=== PATIENT | male | born 1980 | race Caucasian/White ===

== ENCOUNTER 2019-05-02 11:27 | Emergency (ER) | payer OTHER ==
[~2019-05-02] VITALS: Ht 170.2 cm; Wt 72.6 kg
[2019-05-02 11:28] VITALS: BP 138/91
[2019-05-02] MEDS ORDERED: PREDNISONE 20 M20 MG PO (12:01)
[2019-05-02] MEDS ORDERED: CLARITIN10 MG PO (12:01)
== END 2019-05-02 12:35 | disposition home or self-care (01) ==
LOC: ER 11:27
DX: S80.862A Insect bite (nonvenomous), left lower leg, initial encounter (principal); S80.861A Insect bite (nonvenomous), right lower leg, initial encounter; W57.XXXA Bitten or stung by nonvenomous insect and other nonvenomous arthropods, initial encounter; Y93.89 Activity, other specified; Y92.89 Other specified places as the place of occurrence of the external cause; Y99.8 Other external cause status; F15.10 Other stimulant abuse, uncomplicated; F17.210 Nicotine dependence, cigarettes, uncomplicated; Z88.8 Allergy status to other drugs, medicaments and biological substances